=== PATIENT | female | born 1995 | race Caucasian/White ===

== ENCOUNTER 2018-03-20 21:21 | Emergency (ER) | payer OTHER ==
[~2018-03-20] VITALS: Ht 167.6 cm; Wt 128.4 kg
[2018-03-20 23:42] LABS: HEMATOCRIT 36.9 % (36.0-46.0); HEMOGLOBIN 12.1 G/DL (11.9-15.5); MCH 29.2 PG (29.0-34.0); MCHC 32.8 G/DL (30.0-36.0); MCV 88.9 FL (83-99); PLATELET COUNT 307 K/uL (156-360); RBC DIS.WIDTH-CV 12.7 % (11.8-14.6); RBC DIS.WIDTH-SD 41.5 % (39-53); RED BLOOD COUNT 4.15 M/uL (3.80-5.20); WHITE BLOOD COUNT 6.9 K/uL (4.1-10.2)
[2018-03-20 23:47] LABS: INTER. NORMALIZED RATIO 0.9
[2018-03-20 23:50] LABS: PTT 24.9 SEC (25-37)
[2018-03-20 23:56] LABS: ALBUMIN 3.6 g/dL (3.2-4.8); CHLORIDE 108 mEq/L (99-109); POTASSIUM 3.7 mEq/L (3.7-5.4); SODIUM 140 mEq/L (136-147)
[2018-03-20 23:59] LABS: GLUCOSE 101 mg/dL (70-99); TOTAL PROTEIN 6.8 g/dL (6.4-8.3)
[2018-03-21] LABS: TOTAL BILIRUBIN 0.2 mg/dL (0.0-1.0)
[2018-03-21 00:02] LABS: ALKALINE PHOSPHATASE 54 IU/L (3-129); CREATININE 0.8 mg/dL (0.6-1.3); GFR ESTIMATE (CALCULATED) > 59 mL/min/
[2018-03-21 00:03] LABS: UREA NITROGEN (BUN) 11 mg/dL (9-23)
[2018-03-21 00:04] LABS: AST (GOT) 12 IU/L (2-34); DIRECT BILIRUBIN 0.1 mg/dL (0.0-0.3)
[2018-03-21 00:05] LABS: ALT (GPT) 13 IU/L (3-49)
[2018-03-21] MEDS ORDERED: XARELTO1 EACH PO (00:36)
[2018-03-21] MEDS ORDERED: ULTRACET1 TABLET PO (01:04)
[2018-03-21 01:10] VITALS: BP 128/84
== END 2018-03-21 01:11 | disposition home or self-care (01) ==
LOC: EME 21:21
PROVIDERS: Physician Assistant
DX: I82.491 Acute embolism and thrombosis of other specified deep vein of right lower extremity (principal); Z90.49 Acquired absence of other specified parts of digestive tract
CPT/HCPCS: 80048; 80076; 85027; 85610; 85730; 93971; 99281; 99284

== ENCOUNTER 2018-03-22 20:49 | Emergency (ER) | payer OTHER ==
[~2018-03-22] VITALS: Ht 167.6 cm; Wt 128.4 kg
[~2018-03-22 20:49] MED LIST: ULTRACET1 TABLET PO; XARELTO1 EACH PO
[2018-03-22 21:42] LABS: HEMATOCRIT 36.7 % (36.0-46.0); HEMOGLOBIN 12.3 G/DL (11.9-15.5); MCH 29.5 PG (29.0-34.0); MCHC 33.5 G/DL (30.0-36.0); PLATELET COUNT 320 K/uL (156-360); RBC DIS.WIDTH-CV 12.5 % (11.8-14.6); RBC DIS.WIDTH-SD 40.3 % (39-53); RED BLOOD COUNT 4.17 M/uL (3.80-5.20); WHITE BLOOD COUNT 5.7 K/uL (4.1-10.2)
[2018-03-22 21:49] LABS: ALBUMIN 3.5 g/dL (3.2-4.8); INTER. NORMALIZED RATIO 1.4
[2018-03-22 21:50] LABS: CHLORIDE 109 mEq/L (99-109); SODIUM 141 mEq/L (136-147)
[2018-03-22 21:52] LABS: GLUCOSE 104 mg/dL (70-99); PTT 33.4 SEC (25-37); TOTAL PROTEIN 6.2 g/dL (6.4-8.3)
[2018-03-22 21:54] LABS: TOTAL BILIRUBIN 0.2 mg/dL (0.0-1.0)
[2018-03-22 21:55] LABS: ALKALINE PHOSPHATASE 57 IU/L (3-129)
[2018-03-22 21:56] LABS: CREATININE 0.7 mg/dL (0.6-1.3); GFR ESTIMATE (CALCULATED) > 59 mL/min/
[2018-03-22 21:57] LABS: AST (GOT) 12 IU/L (2-34); UREA NITROGEN (BUN) 8 mg/dL (9-23)
[2018-03-22 21:58] LABS: ALT (GPT) 12 IU/L (3-49)
[2018-03-22 22:15] VITALS: BP 164/79
== END 2018-03-22 22:15 | disposition home or self-care (01) ==
LOC: RME 20:49 → EME 20:49 → RME 22:15
PROVIDERS: Nurse Practitioner Family
DX: I82.401 Acute embolism and thrombosis of unspecified deep veins of right lower extremity (principal); Z79.01 Long term (current) use of anticoagulants
CPT/HCPCS: 80053; 85027; 85610; 85730; 99281; 99284